=== PATIENT | female | born 1940 | race Caucasian/White ===

== ENCOUNTER 2019-02-02 12:29 | Emergency (ER) | payer MEDICARE ==
[~2019-02-02] VITALS: Ht 160 cm; Wt 67.7 kg
[~2019-02-02 12:29] MED LIST: *PREMTA OR; ACET65TA OR; ALLO300T OR; CALCTAB93 PO; COUM1TAB18 OR; FLEXARIL PO; MULTIVIT PO; OMEP20TA7 OR; SPIRIVA INH; TRAM50TA2 OR; VICODIN PO
[2019-02-02] MEDS ORDERED: OMEP-218 (12:44)
[2019-02-02] MEDS ORDERED: ZYLO300T6 (12:44)
[2019-02-02] MEDS ORDERED: METH2.5T48 (12:44)
[2019-02-02] MEDS ORDERED: VALA500T5 (12:44)
[2019-02-02] MEDS ORDERED: XALA0.007 (12:44)
[2019-02-02] MEDS ORDERED: GABA-1171 (12:44)
[2019-02-02] MEDS ORDERED: BREO1INH3 (12:44)
[2019-02-02] MEDS ORDERED: TIMO0.5S29 (12:44)
[2019-02-02] MEDS ORDERED: NEUR100C PO (14:36)
[2019-02-02] MEDS ORDERED: ULTR50TA8 PO (14:36)
[2019-02-02 14:41] VITALS: BP 165/90
== END 2019-02-02 14:45 | disposition home or self-care (01) ==
LOC: M ED 12:29
DX: M54.41 Lumbago with sciatica, right side (principal); Z88.5 Allergy status to narcotic agent; Z87.891 Personal history of nicotine dependence; M51.36 Other intervertebral disc degeneration, lumbar region; K21.9 Gastro-esophageal reflux disease without esophagitis; Z79.899 Other long term (current) drug therapy

== ENCOUNTER → 2019-03-16 | Outpatient (REF) | payer MEDICARE ==
[~2019-03-16] MED LIST changes: +BREO1INH3; +GABA-1171; +METH2.5T48; +NEUR100C PO; +OMEP-218; +TIMO0.5S29; +ULTR50TA8 PO; +VALA500T5; +XALA0.007; +ZYLO300T6
[2019-03-16 12:26] LABS: CREATININE FOR GFR 0.97 MG/DL (0.55-1.30); GLOMERULAR FILTRATION RATE 59.4 (>39)
== END ==
LOC: M LABDRAW1 11:41
PROVIDERS: ATTEND Physician Assistant
DX: M47.817 Spondylosis without myelopathy or radiculopathy, lumbosacral region (principal)

== ENCOUNTER → 2020-01-22 | Outpatient (CLI) | payer MEDICARE | LOC: M LABSMTC 09:12 | PROVIDERS: ATTEND Physician Assistant | DX: Z01.812 Encounter for preprocedural laboratory examination (principal); Z20.828 Contact with and (suspected) exposure to other viral communicable diseases ==

== ENCOUNTER 2023-08-02 20:48 | Emergency (ER) | payer MEDICARE, OTHER ==
[~2023-08-02] VITALS: Ht 160 cm; Wt 65.5 kg
[~2023-08-02 20:48] MED LIST changes: +OMEP-173; -OMEP-218; +TIMO0.5S20; -TIMO0.5S29
[2023-08-02] MEDS: diazePAM 10MG/2ML SYRINGE IV ONE (23:37)
[2023-08-02 23:52] LABS: INR 1.07; PARTIAL THROMBOPLASTIN TIME 28.9 SECONDS (24.8-34.2); PROTHROMBIN TIME 13.5 SECONDS (12.5-14.5)
[2023-08-03 00:03] LABS: CALCIUM LEVEL 8.9 MG/DL (8.3-10.6); CREATININE FOR GFR 0.96 MG/DL (0.55-1.30); GLOMERULAR FILTRATION RATE 59.4 (>32); POTASSIUM SERUM 4.1 MMOL/L (3.5-5.1)
[2023-08-03 00:10] LABS: BASO % 0.3 % (0.0-1.0); EOS % 0.6 % (0.0-3.0); HEMATOCRIT 47.2 % (36.0-47.0); HEMOGLOBIN 15.7 g/dl (12.0-15.5); LYMPH # 1.1 10^3/uL (1.5-5.0); LYMPH % 16.6 % (24.0-44.0); MEAN CORPUSCULAR HEMOGLOBIN 35.8 pg (27.0-33.0); MEAN CORPUSCULAR HGB CONC 33.3 g/dl (32.0-36.5); MEAN CORPUSCULAR VOLUME 107.5 fl (80.0-96.0); MONO # 0.9 10^3/uL (0.0-0.8); MONO % 14.3 % (2.0-8.0); NEUTROPHILS # 4.4 10^3/uL (1.5-8.5); NEUTROPHILS % 67.9 % (36.0-66.0); PLATELET COUNT, AUTOMATED 214 10^3/uL (150-450); RED BLOOD COUNT 4.39 10^6/uL (4.00-5.40); WHITE BLOOD COUNT 6.5 10^3/uL (4.0-10.0)
[2023-08-03] MEDS ORDERED: ISOVUE-370 76% 100ML VIAL As Ordered ONE (00:27)
[2023-08-03] MEDS: METOCLOPRAMIDE INJ 10MG/2ML VIAL IV ONE (01:56)
[2023-08-03] MEDS: KETOROLAC 30 MG/ML 1ML VIAL IV ONE (01:57)
[2023-08-03 02:30] VITALS: BP 133/82; TEMP 98.6
[2023-08-03 02:45] VITALS: O2SAT 87
[2023-08-03] MEDS ORDERED: ASPI81TA26 PO (02:59)
[2023-08-03] MEDS: ASPIRIN 81MG CHEW TABLET PO ONE (03:12)
== END 2023-08-03 03:26 | disposition home or self-care (01) ==
LOC: M ED 20:48
DX: R20.2 Paresthesia of skin (principal); M06.9 Rheumatoid arthritis, unspecified; J44.9 Chronic obstructive pulmonary disease, unspecified; Z79.899 Other long term (current) drug therapy; Z88.5 Allergy status to narcotic agent
CPT/HCPCS: 70450; 70496; 70498; 72125; 80048; 83735; 85025; 85610; 85730; 87486; 87581; 87633; 87798; 93005; 96374; 96375; 99284; J1100; J1885; J2765; J3360; Q9967